=== PATIENT | male | born 1950 | race Caucasian/White ===

== ENCOUNTER 2021-07-17 00:52 | Day surgery (SDC) | payer MEDICARE, SELFPAY ==
[2021-07-09 13:15] VITALS: BMI 26.2
[2021-07-17 07:09] VITALS: BP 165/103; PULSE 95; RESP 18; TEMP 36.4; O2SAT 99
[2021-07-17] MEDS: LACTATED RINGERS 1,000 ML 150 ML IV CONT (07:19)
--- NOTE | 2021-07-17 07:22 | P.CONGI_ITS ---
Assessment and Plan Assessment and plan (1) History of colon polyps: Code(s): Z86.010 - Personal history of colonic polyps Status: Acute Assessment and Plan: Patient has a personal history of adenomatous colon polyps removed from the colon 2016. Plan is for surveillance colonoscopy at this time. Further recommendations will be given after endoscopy. GI Consult Note Consult date/time: 07/17/21 07:22 HPI: Saul Barry is a 71 year old male Presents for screening colonosco py. Patient reports that his current weight appetite and bowel movements are normal. He denies abdominal pain. He has had no bleeding. Patient does have a history of 2 colon polyps identified and removed from the colon 2016. He presents today for follow-up surveillance colonoscopy. Denies any blood in his stools he has had no abdominal pain. Review of Systems Review of Systems: All systems reviewed & are unremarkable except as noted in HPI and below PMFSH Past Medical History Medical History (Updated 07/17/21 @ 07:24 by Alen Long MD) BMI 27.0-27.9,adult Colon cancer screening Erectile dysfunction HTN (hypertension) Primary hypertension Prostate cancer screening Tear meniscus knee Family History Family History Mother Hypertension Sibling Hypertension Social History Social History Smoking status: Never smoker Second hand tobacco smoke exposure: No Alcohol intake: current Drinks per week: 6 Alcohol use details: BEERS Substance use: never Substance use type: does not use Living arrangements: with family Gender identity (if verbalized by the patient): Male Sexual Orientation (if Verbalized by the Patient): Straight or Heterosexual Spiritual care concerns: No Agree to blood products: Yes Meds Home Medications and Allergies Home Medications Medication Instructions Recorded Confirmed Type lisinopril 40 mg tablet 40 mg PO DAILY #90 tablet 01/14/21 07/17/21 Rx metoprolol succinate 25 mg 25 mg PO DAILY #90 tablet 03/03/21 07/17/21 Rx tablet,extended release 24 hr sildenafil 100 mg tablet See Rx Instructions .ROUTE 05/26/21 07/17/21 Rx .COMPLEX #6 tablet Vitamin Pack 1 packet PO DAILY 07/09/21 07/17/21 History Allergies Allergy/AdvReac Type Severity Reaction Status Date / Time No Known Allergies Allergy Verified 07/17/21 07:01 Vital Signs Vital Signs - 24 hr 07/17/21 07:09 Temperature 97.5 F L Pulse Rate 95 Respiratory Rate 18 Blood Pressure 165/103 H Pulse Oximetry 99 Exam Narrative: Physical exam reveals patient to be alert. Vital signs stable. HEENT exam is unremarkable. Patient is anicteric. Lungs are clear to auscultation and percussion. Heart is without murmur or extra sounds. Abdominal exam bowel sounds are present soft nontender with no organomegaly. Digital external rectal exam is normal.
--- NOTE | 2021-07-17 07:49 | WPDANESEPPF ---
Anes - Initial Pre Proc Eval Procedure: Operation Date: 07/17/21 08:15 Proposed Procedures p Screening Colonoscopy - Alen Long MD Date/Time: 07/17/21 07:49 Surgeon: Alen Long MD Pre Op Diagnosis: hx of colon polyps Patient Data Age: 71 Gender: M Height: 1.85 m Weight: 89.8 kg Last Vital Signs Temp 36.4 C L 07/17/21 07:09 Pulse 95 07/17/21 07:09 Resp 18 07/17/21 07:09 BP 165/103 H 07/17/21 07:09 Pulse Ox 99 07/17/21 07:09 Allergies Allergy/AdvReac Type Severity Reaction Status Date / Time No Known Allergies Allergy Verified 07/17/21 07:01 Home Medications Medication Instructions Recorded Confirmed Type lisinopril 40 mg tablet 40 mg PO DAILY #90 tablet 01/14/21 07/17/21 Rx metoprolol succinate 25 mg 25 mg PO DAILY #90 tablet 03/03/21 07/17/21 Rx tablet,extended release 24 hr sildenafil 100 mg tablet See Rx Instructions .ROUTE 05/26/21 07/17/21 Rx .COMPLEX #6 tablet Vitamin Pack 1 packet PO DAILY 07/09/21 07/17/21 History Patient hx anesthesia problems: none Family hx anesthesia problems: none Results Review: All pre-operative results and documents have been reviewed as part of the pre-operative evaluation. REPLACED BY [facility] Past Medical History Medical History (Updated 07/17/21 @ 07:24 by Alen Long MD) BMI 27.0-27.9,adult Colon cancer screening Erectile dysfunction HTN (hypertension) Primary hypertension Prostate cancer screening Tear meniscus knee Family History Family History Mother Hypertension Sibling Hypertension Social History Social History Smoking status: Never smoker Second hand tobacco smoke exposure: No Alcohol intake: current Drinks per week: 6 Alcohol use details: BEERS Substance use: never Substance use type: does not use Living arrangements: with family Gender identity (if verbalized by the patient): Male Sexual Orientation (if Verbalized by the Patient): Straight or Heterosexual Spiritual care concerns: No Agree to blood products: Yes Anes - Eval Final PreProcedure Day of Procedure 07/17/21 07:49 Patient weight: overweight Heart: regular rate and rhythm Lungs: clear to auscultation and normal air movement Airway: Mallampati scale class II Neurological: alert and oriented Last oral intake: >/= 8 hours ASA classification: II Emergent: no Anesthetic plan: proceed Anesthesia type and monitoring: general GIVS Results Review: All pre-operative results and documents have been reviewed as part of the pre-operative evaluation. Informed Consent: The patient's anesthetic plan and its attendant risks and benefits were discussed with the patient/family/POA. Questions were solicited and answers provided to the satisfaction of the patient/family/POA.
[2021-07-17] MEDS: SIMETHICONE ORAL SUSPENSION 20 MG/0.3 ML 30 ML BOTTLE 0.6 ML IRRIGATION (08:26)
[2021-07-17 08:35] VITALS: BP 122/78; PULSE 70; RESP 21; O2SAT 100
[2021-07-17 08:45] VITALS: BP 140/95; PULSE 68; RESP 25; O2SAT 100
[2021-07-17 08:55] VITALS: BP 145/98; PULSE 63; RESP 16; O2SAT 100
== END 2021-07-17 09:06 | disposition home or self-care (01) ==
PROVIDERS: PCP Family Medicine; Referring Provider Family Medicine; Visit Provider Internal Medicine Gastroenterology
PROC: 0DJD8ZZ Inspection of Lower Intestinal Tract, Via Natural or Artificial Opening Endoscopic (ICD-10-PCS; CPT 45378; principal; 2021-07-17 08:15)
DX: Z12.11 Encounter for screening for malignant neoplasm of colon (principal); K64.8 Other hemorrhoids; Z86.010 Personal history of colon polyps; I10 Essential (primary) hypertension
CPT/HCPCS: G0105; J2704; J7120

== ENCOUNTER 2023-06-30 09:15 | Outpatient (CLI) | payer MEDICARE, SELFPAY ==
--- NOTE | ~2023-06-30 | XR_ITS ---
Right Knee Technique: AP, lateral, and sunrise views were obtained. Clinical History: Pain Findings: No fracture or dislocation is seen. Osseous alignment is anatomic. Joint spaces are preserv ed without degenerative or erosive change. Extensive vascular calcifications are noted. No joint effu simón is seen. Impression: No acute abnormality. Reviewed, dictated and finalized at location . Impression: No acute abnormality.
== END 2023-06-30 09:16 | disposition home or self-care (01) ==
PROVIDERS: PCP Family Medicine; Visit Provider Physician Assistant Medical
DX: M25.561 Pain in right knee (principal)
CPT/HCPCS: 73562

== ENCOUNTER 2024-10-18 09:42 | Outpatient (CLI) | payer MEDICARE, SELFPAY ==
--- NOTE | ~2024-10-18 | XR_ITS ---
EXAM/ PROCEDURE: XR knee RT 3V - 10/18/2024 9:57 CDT HISTORY: 74 years old Male with M25.561 - Pain in right knee COMPARISON: None available TECHNIQUE: Three view(s) FINDINGS/ IMPRESSION: There are no fractures or dislocations.Joint space narrowing, subchondral sclerosis, subchondral cyst formation and osteophyte formation, compatible with moderate osteoarthritis. Atherosclerotic calcifications are seen in the vessels. Reviewed, dictated and finalized at location A.
== END 2024-10-18 09:43 | disposition home or self-care (01) ==
LOC: MICIMG 09:43
PROVIDERS: PCP Family Medicine; Visit Provider Student in an Organized Health Care Education/Training Program
DX: M25.561 Pain in right knee (principal)
CPT/HCPCS: 73562

== ENCOUNTER 2024-12-14 08:12 | Outpatient (CLI) | payer MEDICARE, SELFPAY ==
--- NOTE | ~2024-12-14 | US_ITS ---
ULTRASOUND ABDOMEN LIMITED (RIGHT UPPER QUADRANT) Clinical History: R74.8 - Abnormal levels of other serum enzymes Comparison: None Technique: Right upper quadrant sonography Findings: Liver: Normal size. Echogenic. No intrahepatic biliary ductal dilatation. Normal hepatopedal flow main portal vein. Common Duct: Normal caliber. 4 mm. Gallbladder: No stones. No wall thickening. No pericholecystic fluid. 6 mm polyp. Pancreas: Mostly obscured by bowel gas. Right kidney: Unremarkable. Retrohepatic IVC: Unremarkable. IMPRESSION: 1. Hepatic steatosis and/or hepatocellular disease. 2. 6 mm gallbladder polyp. Recommend ultrasound in one year. Reviewed, dictated and finalized at location R.
== END 2024-12-14 08:13 | disposition home or self-care (01) ==
LOC: MICIMG 08:13
PROVIDERS: PCP Family Medicine; Visit Provider Student in an Organized Health Care Education/Training Program
DX: R74.8 Abnormal levels of other serum enzymes (principal); K76.0 Fatty (change of) liver, not elsewhere classified; K82.4 Cholesterolosis of gallbladder
CPT/HCPCS: 76705